=== PATIENT | female | born 1960 | race Caucasian/White ===

== ENCOUNTER → 2021-09-30 | Outpatient (CLI) | payer BC ==
[~2021-09-30] MED LIST: CELEBREX100 MG PO; PROTONIX40 MG PO; SYNTHROID75 MCG PO; ZOLOFT100 MG PO
== END ==
LOC: HEART 5 14:16
DX: J45.30 Mild persistent asthma, uncomplicated (principal); R06.02 Shortness of breath
CPT/HCPCS: 94010; 95012